=== PATIENT | female | born 1970 | race Caucasian/White ===

== ENCOUNTER → 2016-10-25 | Outpatient (CLI) | payer BC ==
[~2016-10-25] MED LIST: ABL10 PO; BUPR200T2 PO; BUSP30TA2 PO; CHOL100010 PO; CPXI IM; LAMO25TA PO; LEVO75TA36 PO; LEVOTHYROXINE PO; LISD60CA PO; LISD70CA PO; NORE0.1T PO; TOPI25TA10 PO; b12 PO; vitamin d PO
--- NOTE | 2016-10-25 16:33 | MAMMOGRAPHY REPORT ---
BILATERAL DIGITAL SCREENING MAMMOGRAM TOMOSYNTHESIS WITH CAD: 10/25/2016 CLINICAL HISTORY: Routine screening. Patient has no complaints. TECHNIQUE: Breast tomosynthesis in addition to standard 2D mammography was performed. Current study was also evaluated with a Computer Aided Detection (CAD) system. COMPARISON: Comparison is made to exams dated: 10/25/2015 mammogram, 05/06/2013 ultrasound, 05/06/20 13 mammogram, and 04/30/2013 mammogram - [facility]. BREAST COMPOSITION: There are scattered areas of fibroglandular density in both breasts. FINDINGS: No suspicious masses, calcifications, or areas of architectural distortion are noted in e ither breast. There has been no significant interval change compared to prior exams. IMPRESSION: ACR BI-RADS CATEGORY 1: NEGATIVE There is no mammographic evidence of malignancy. A 1 year screening mammogram is recommended. The p atient will receive written notification of the results. Approximately 10% of breast cancers are not detected with mammography. A negative mammographic repor t should not delay biopsy if a clinically suggestive mass is present. Keya Franklin M.D. ah/:10/25/2016 15:52:47 Technician Test Systems: Mala Paulino RT(R)(M), [facility] letter sent: Normal 1/2 BI-RADS Code: ACR BI-RADS Category 1: Negative
== END | disposition home or self-care (01) ==
LOC: C.MAMM 11:29
PROVIDERS: ATTEND Family Medicine
DX: Z12.31 Encounter for screening mammogram for malignant neoplasm of breast (principal)

== ENCOUNTER → 2016-12-13 | Outpatient (CLI) | payer BC ==
[~2016-12-13] MED LIST changes: -CHOL100010 PO; +GADAVIST IV PRN; -LEVO75TA36 PO; -LISD60CA PO; -TOPI25TA10 PO
--- NOTE | 2016-12-13 11:36 | DIAGNOSTIC IMAGING REPORT ---
Brain MRI WITH AND WITHOUT CONTRAST HISTORY: Demyelinating disorder MS TECHNIQUE: Multiplanar multisequence MRI of the brain was performed both before and after the intravenous administration of contrast. COMPARISON STUDY: 01/04/2016 FINDINGS: Unchanged exam compared to the prior study. No evidence for an acute ischemic event based on diffusion-weighted images. Multiple foci of increased signal within the periventricular deep matter regions. These are unchanged in size number and or configuration compared to the prior study. There are no new or interval findings. Postcontrast images are considered negative for an enhancing lesion. IMPRESSION: 1. Multiple findings throughout both cerebral hemispheres consistent with a demyelinating disorder. 2. No change from the prior exam. 3. No abnormal postcontrast enhancement. 4. Findings consistent with stable multiple sclerosis. Electronically signed by: Ronnie Orozco M.D. 12/13/2016 11:34 AM Dictated Date/Time: 12/13/2016 11:27 AM
--- NOTE | 2016-12-13 12:27 | DIAGNOSTIC IMAGING REPORT ---
MRI OF THE CERVICAL SPINE COMBO CLINICAL HISTORY: MULTIPLE SCLEROSIS. COMPARISON STUDY: MRI of the cervical spine dated 11/01/2013. TECHNIQUE: MRI of the cervical spine is performed utilizing various T1 and T2-weighted sequences in the axial and sagittal planes. Contrast-enhanced sequences are acquired following the IV administration of 7.5 cc of Gadavist. FINDINGS: Cervical spine: Vertebral body height and alignment are maintained throughout the cervical spine. There is straightening of the cervical lordosis with mild reversal centered at C4-C5. The atlantodental articulation appears maintained. The spinous processes are intact. No destructive bony process is seen. Intervertebral discs: There is mild degenerative disc desiccation noted. The disc spaces are preserved. Spinal cord: The cervical spinal cord is normal in morphology and signal intensity. No abnormal enhancement is identified on the postcontrast images. C2-C3: Minimal facet arthropathy is of no confluence. C3-C4: Unremarkable. C4-C5: A posterior disc-osteophyte complex abuts the ventral cord. Mild facet arthropathy is of no confluence. The neural foramina are clear. C5-C6: A posterior disc-osteophyte complex eccentric to the left effaces the ventral cord. Uncovertebral and facet arthropathy causes moderate left and mild right neural foraminal stenosis. C6-C7: A posterior disc-osteophyte complex eccentric to the left effaces the ventral cord. Uncovertebral and facet arthropathy causes moderate left and minimal right neural foraminal stenosis. C7-T1: Unremarkable. Soft tissues: The prevertebral and paraspinous soft tissues are normal in appearance. Brain parenchyma: Partially imaged brain parenchyma at the skull base is within normal limits. IMPRESSION: 1. The cervical spinal cord is normal in morphology and signal intensity. No abnormal enhancement is seen. 2. Cervical spondylosis as above, greatest from C4-C5 through C6-C7. 3. No destructive bony process is seen. Dictated: 12/13/2016 11:11 AM Transcribed: 12/13/2016 12:27 PM [email or web address] Electronically signed by: Benjamín Brewster M.D. 12/13/2016 12:34 PM Dictated Date/Time: 12/13/2016 11:11 AM
== END | disposition home or self-care (01) ==
LOC: C.MRIBC 08:44
PROVIDERS: ATTEND Psychiatry & Neurology Neurology
DX: G35 Multiple sclerosis (principal); M47.812 Spondylosis without myelopathy or radiculopathy, cervical region

== ENCOUNTER → 2017-10-28 | Outpatient (CLI) | payer OTHER ==
[~2017-10-28] MED LIST changes: -GADAVIST IV PRN
--- NOTE | 2017-10-28 14:24 | MAMMOGRAPHY REPORT ---
BILATERAL DIGITAL SCREENING MAMMOGRAM TOMOSYNTHESIS WITH CAD: 10/28/2017 CLINICAL HISTORY: Routine screening. Patient has no complaints. TECHNIQUE: Breast tomosynthesis in addition to standard 2D mammography was performed. Current study was also evaluated with a Computer Aided Detection (CAD) system. COMPARISON: Comparison is made to exams dated: 10/25/2016 mammogram, 10/25/2015 mammogram, 05/06/2013 ultrasound, 05/06/2013 mammogram, and 04/30/2013 mammogram - [facility]. BREAST COMPOSITION: There are scattered areas of fibroglandular density in both breasts. FINDINGS: There is a possible faint grouping of microcalcifications in the lateral, middle one third of the right breast, best seen on the CC view, for which additional spot magnification views are rec ommended. There is stable asymmetry in the inferior left breast on the MLO view. No other suspicious mass, arch itectural distortion or cluster of microcalcifications is seen. IMPRESSION: ACR BI-RADS CATEGORY 0: INCOMPLETE EVALUATION: NEED ADDITIONAL IMAGING EVALUATION The possible faint grouping of microcalcifications in the lateral right breast needs additional evalu ation. The patient will be called to schedule an appointment. Approximately 10% of breast cancers are not detected with mammography. A negative mammographic report should not delay biopsy if a clinically suggestive mass is present. Cheryl Almanzar M.D. ay/:10/28/2017 12:24:47 Assisted Living Housekeeper: Ophelia MARTINEZ)(Chucky), [facility] letter sent: Addl Imaging 0 BI-RADS Code: ACR BI-RADS Category 0: Incomplete Evaluation: Need Additional Imaging Evaluation
== END | disposition home or self-care (01) ==
LOC: C.MAMM 11:08
PROVIDERS: ATTEND Family Medicine
DX: Z12.31 Encounter for screening mammogram for malignant neoplasm of breast (principal)

== ENCOUNTER → 2017-10-31 | Outpatient (CLI) | payer OTHER ==
--- NOTE | 2017-11-03 07:48 | MAMMOGRAPHY REPORT ---
UNILATERAL RIGHT DIGITAL DIAGNOSTIC MAMMOGRAM: 10/31/2017 CLINICAL HISTORY: Callback from screening mammogram for right breast calcifications. TECHNIQUE: Spot magnification right cc and ML views were obtained. COMPARISON: Comparison is made to exams dated: 10/25/2016 mammogram, 10/25/2015 mammogram, 05/06/2013 ultrasound, 05/06/2013 mammogram, and 04/30/2013 mammogram - [facility]. BREAST COMPOSITION: There are scattered areas of fibroglandular density in the right breast. FINDINGS: Spot magnification views demonstrate approximately 4 loosely grouped punctate benign-appear ing calcifications within the right lower inner quadrant, best seen on the cc view. Compared to prio r exams, the calcifications were possibly present on the 2016 and 2015 exams although are very faint on the full-field views which makes it difficult to compare to the prior exams. The calcifications a re probably benign given the probable stability and benign morphology. Recommend follow-up in 6 armando hs. IMPRESSION: ACR-BI-RADS CATEGORY 3: PROBABLY BENIGN Loosely grouped punctate benign-appearing calcifications in the right lower inner quadrant are probab ly benign. Recommend follow-up diagnostic tomosynthesis mammograms of the right breast in 6 months t o confirm stability on spot magnification views. The patient has been verbally notified of the results. Approximately 10% of breast cancers are not detected with mammography. A negative mammographic report should not delay biopsy if a clinically suggestive mass is present. Keya Franklin M.D. /:10/31/2017 10:39:13 Cloud Automation Tester: Melani ODELL(Michael)(Chucky), [facility] letter sent: Follow Up Recommended 3 BI-RADS Code: ACR-BI-RADS Category 3: Probably Benign
== END | disposition home or self-care (01) ==
LOC: C.MAMM 10:09
PROVIDERS: ATTEND Family Medicine
DX: R92.0 Mammographic microcalcification found on diagnostic imaging of breast (principal)